=== PATIENT | female | born 1995 | race Caucasian/White ===

== ENCOUNTER 2018-06-02 14:35 | Emergency (ER) | payer SELFPAY | END 2018-06-02 18:36 | disposition left against medical advice (07) | LOC: FTE 14:35 | DX: Z53.21 Procedure and treatment not carried out due to patient leaving prior to being seen by health care provider (principal) ==

== ENCOUNTER 2018-06-03 09:17 | Outpatient (CLI) | payer SELFPAY ==
[2018-06-03 10:09] LABS: ADD MAN DIFF? NO
[2018-06-03 10:10] LABS: WHITE BLOOD COUNT 6.1 10^3/ul (4.8-10.8)
[2018-06-03 10:10] LABS: BASOPHILS % 0.2 % (0.0-2.0); EOSINOPHILS # 0.1 10^3/ul (0.0-0.5); HEMATOCRIT 29.8 % (37.0-47.0); HEMOGLOBIN 9.7 g/dl (12.0-16.0); LYMPHOCYTES # 1.3 10^3/ul (0.8-2.9); LYMPHOCYTES % 21.7 % (15.0-51.0); MEAN CORPUSCULAR HEMOGLOBIN 28.4 pg (29.0-33.0); MEAN CORPUSCULAR HGB CONC 32.6 g/dl (32.0-37.0); MEAN CORPUSCULAR VOLUME 87.4 fl (82.0-101.0); MEAN PLATELET VOLUME 9.7 fl (7.4-10.4); MONOCYTE # 0.5 10^3/ul (0.3-0.9); MONOCYTES % 7.8 % (0.0-11.0); NEUTROPHIL # 4.3 10^3/ul (1.6-7.5); NEUTROPHILS % 69.1 % (39.0-77.0); PLATELET COUNT 226 10^3/UL (140-415); RED BLOOD COUNT 3.41 10^6/ul (4.20-5.40); RED CELL DISTRIBUTION WIDTH 12.7 % (11.5-14.5)
[2018-06-03 10:16] LABS: ADD UMIC YES; UR ASCORBIC ACID NEGATIVE (NEGATIVE); UR BACTERIA FEW /HPF (NONE SEEN); UR BILIRUBIN (Dip) NEGATIVE (NEGATIVE); UR BLOOD (Dip) 1+ mg/dL (NEGATIVE); UR BUDDING YEAST MODERATE /HPF (NONE SEEN); UR CLARITY TURBID (CLEAR); UR COLOR AMBER (YELLOW); UR GLUCOSE (Dip) NEGATIVE (NEGATIVE); UR KETONES (Dip) NEGATIVE (NEGATIVE); UR LEUKOCYTE ESTERASE (Dip) 3+ Leu/ul (NEGATIVE); UR MUCUS FEW /HPF (NONE SEEN); UR NITRITE (Dip) NEGATIVE (NEGATIVE); UR NONSQUAMOUS EPITHELIAL CELL 5 /HPF (NONE SEEN); UR RBC 139 /HPF (0-5); UR SPECIFIC GRAVITY (Dip) 1.014 (1.003-1.030); UR SQUAMOUS EPITHELIAL CELL MANY /HPF (FEW); UR TOTAL PROTEIN (Dip) 1+ mg/dl (NEGATIVE); UR UROBILINOGEN (Dip) NEGATIVE (NEGATIVE); UR WBC > 182 /HPF (0-5)
== END 2018-06-03 11:50 | disposition home or self-care (01) ==
LOC: OBT 09:17 → L-D 09:17 → OBT 11:50
DX: O23.43 Unspecified infection of urinary tract in pregnancy, third trimester (principal); O99.283 Endocrine, nutritional and metabolic diseases complicating pregnancy, third trimester; E03.9 Hypothyroidism, unspecified; Z3A.30 30 weeks gestation of pregnancy
CPT/HCPCS: 76817; 76818; 81001; 85025; 87086

== ENCOUNTER 2018-07-30 21:22 | Inpatient (IN) | payer MEDICAID ==
[2018-07-30] MEDS ORDERED: LACTATED RINGER'S 1,000 ML IV (21:37)
[2018-07-30] MEDS ORDERED: OXYTOCIN 30 UNITS/LR 500 ML IV (22:00)
[2018-07-30] MEDS ORDERED: BUTORPHANOL 2 MG INJ IV (22:00)
[2018-07-30] MEDS ORDERED: METHYLERGONOVINE 0.2 MG INJ IM (22:00)
[2018-07-30] MEDS ORDERED: LIDOCAINE 1% (MPF) 30 ML INJ INJ (22:00)
[2018-07-30] MEDS ORDERED: IBUPROFEN 600 MG TAB PO (22:00)
[2018-07-30 22:14] LABS: ADD MAN DIFF? NO
[2018-07-30 22:15] LABS: WHITE BLOOD COUNT 7.8 10^3/ul (4.8-10.8)
[2018-07-30 22:15] LABS: BASOPHILS % 0.3 % (0.0-2.0); EOSINOPHILS # 0.1 10^3/ul (0.0-0.5); HEMATOCRIT 30.8 % (37.0-47.0); HEMOGLOBIN 9.4 g/dl (12.0-16.0); LYMPHOCYTES # 1.8 10^3/ul (0.8-2.9); LYMPHOCYTES % 23.4 % (15.0-51.0); MEAN CORPUSCULAR HGB CONC 30.5 g/dl (32.0-37.0); MEAN CORPUSCULAR VOLUME 78.8 fl (82.0-101.0); MEAN PLATELET VOLUME 10.5 fl (7.4-10.4); MONOCYTE # 0.7 10^3/ul (0.3-0.9); NEUTROPHIL # 5.1 10^3/ul (1.6-7.5); NEUTROPHILS % 66.2 % (39.0-77.0); NUCLEATED RED BLOOD CELLS% 0.4 /100WBC (0.0-0.0); PLATELET COUNT 248 10^3/UL (140-415); RED BLOOD COUNT 3.91 10^6/ul (4.20-5.40); RED CELL DISTRIBUTION WIDTH 15.8 % (11.5-14.5)
[2018-07-30 22:20] LABS: ADD UMIC YES; UR ASCORBIC ACID NEGATIVE (NEGATIVE); UR BILIRUBIN (Dip) NEGATIVE (NEGATIVE); UR BLOOD (Dip) NEGATIVE (NEGATIVE); UR CLARITY SLIGHTLY CLOUDY (CLEAR); UR COLOR YELLOW (YELLOW); UR GLUCOSE (Dip) NEGATIVE (NEGATIVE); UR KETONES (Dip) NEGATIVE (NEGATIVE); UR LEUKOCYTE ESTERASE (Dip) 2+ Leu/ul (NEGATIVE); UR NITRITE (Dip) NEGATIVE (NEGATIVE); UR RBC 2 /HPF (0-5); UR SQUAMOUS EPITHELIAL CELL FEW /HPF (FEW); UR TOTAL PROTEIN (Dip) NEGATIVE (NEGATIVE); UR UROBILINOGEN (Dip) NEGATIVE (NEGATIVE); UR WBC 10 /HPF (0-5)
[2018-07-30 22:33] LABS: ALANINE AMINOTRANSFERASE 11 IU/L (13-69); ALBUMIN 3.4 g/dl (3.3-4.9); ALBUMIN/GLOBULIN RATIO 1.13; ALKALINE PHOSPHATASE 209 IU/L (42-121); ANION GAP 11 (5-13); ASPARTATE AMINO TRANSFERASE 15 IU/L (15-46); BILIRUBIN,INDIRECT 0.3 mg/dl (0-1.1); BILIRUBIN,TOTAL 0.3 mg/dl (0.2-1.3); BLOOD UREA NITROGEN 10 mg/dl (7-20); CARBON DIOXIDE 19 mmol/L (21-31); CHLORIDE 108 mmol/L (97-110); CREATININE 0.44 mg/dl (0.44-1.00); Estimated GFR > 60 mL/min (>60); GLUCOSE 96 mg/dl (70-220); SODIUM 138 mmol/L (135-144); TOTAL PROTEIN 6.4 g/dl (6.1-8.1)
[2018-07-30 22:36] LABS: INR 0.92; PARTIAL THROMBOPLASTIN TIME 24.3 Sec (23.0-35.0); PROTIME 12.5 Sec (11.9-14.9)
[2018-07-30 23:04] LABS: HEPATITIS B SURFACE ANTIGEN NEGATIVE (NEGATIVE)
[2018-07-30 23:13] LABS: HIV 1&2 ANTIBODY NEGATIVE (NEGATIVE)
[2018-07-30] MEDS: LACTATED RINGER'S 1,000 ML IV (23:21)
[2018-07-30] MEDS ORDERED: FENTAnyl 2MCG/ML-ROPIV 0.2% 100 ML BAG EPI (23:30)
[2018-07-30] MEDS ORDERED: HYDROmorphONE 0.5 MG/0.5 ML SYG IV ×2 (23:30)
[2018-07-30] MEDS ORDERED: ZOLPIDEM 5 MG TAB PO (23:30)
[2018-07-30] MEDS ORDERED: ONDANSETRON 4 MG INJ IV (23:30)
[2018-07-30] MEDS ORDERED: NALOXONE (0.4 MG/ML) INJ IV (23:30)
[2018-07-30] MEDS ORDERED: KETOROLAC 30 MG INJ IV (23:30)
[2018-07-30] MEDS ORDERED: DIPHENHYDRAMINE 50 MG INJ IV (23:30)
[2018-07-31] MEDS: AMPICILLIN 2 GM/NS (PMX) 100 ML IV (00:24)
[2018-07-31] MEDS: AMPICILLIN 1 GM/NS (PMX) 50 ML IV ×2 (02:09→06:00)
[2018-07-31] MEDS: LACTATED RINGER'S 1,000 ML IV ×2 (05:37→07:15)
[2018-07-31] MEDS: OXYTOCIN 30 UNITS/LR 500 ML IV ×3 (06:05→13:12)
[2018-07-31] MEDS: MISOPROSTOL 200 MCG TAB PR (06:16)
[2018-07-31] MEDS: CARBOPROST 250 MCG INJ IM (06:42)
[2018-07-31] MEDS ORDERED: CARBOPROST 250 MCG INJ IM (07:00)
[2018-07-31] MEDS ORDERED: ACETAMINOPHEN 325 MG TAB PO (07:00)
[2018-07-31] MEDS ORDERED: LANOLIN HPA 1 PKT TOP (07:00)
[2018-07-31] MEDS ORDERED: MISOPROSTOL 200 MCG TAB PR (07:00)
[2018-07-31] MEDS ORDERED: NACL 0.9% 3 ML SYG IV (07:00)
[2018-07-31] MEDS ORDERED: OXYTOCIN 30 UNITS/LR 500 ML IV (07:00)
[2018-07-31] MEDS ORDERED: ZOLPIDEM 5 MG TAB PO (07:00)
[2018-07-31] MEDS ORDERED: DIPHENHYDRAMINE 25 MG CAP PO (07:00)
[2018-07-31] MEDS: ONDANSETRON 4 MG INJ IV (07:10)
[2018-07-31 07:30] LABS: ADD MAN DIFF? NO
[2018-07-31] MEDS: DIPHENOXYLATE/ATROPINE TAB PO (07:30)
[2018-07-31 07:35] LABS: BASOPHILS % 0.2 % (0.0-2.0); EOSINOPHILS % 0.2 % (0.0-7.0); HEMATOCRIT 29.3 % (37.0-47.0); HEMOGLOBIN 8.9 g/dl (12.0-16.0); LYMPHOCYTES # 1.8 10^3/ul (0.8-2.9); LYMPHOCYTES % 11.4 % (15.0-51.0); MEAN CORPUSCULAR HEMOGLOBIN 24.1 pg (29.0-33.0); MEAN CORPUSCULAR HGB CONC 30.4 g/dl (32.0-37.0); MEAN CORPUSCULAR VOLUME 79.4 fl (82.0-101.0); MEAN PLATELET VOLUME 10.6 fl (7.4-10.4); MONOCYTES % 6.4 % (0.0-11.0); NEUTROPHIL # 12.5 10^3/ul (1.6-7.5); NEUTROPHILS % 81.3 % (39.0-77.0); PLATELET COUNT 230 10^3/UL (140-415); RED BLOOD COUNT 3.69 10^6/ul (4.20-5.40); RED CELL DISTRIBUTION WIDTH 15.7 % (11.5-14.5)
[2018-07-31 07:35] LABS: WHITE BLOOD COUNT 15.4 10^3/ul (4.8-10.8)
[2018-07-31] MEDS: LEVOTHYROXINE 75 MCG TAB PO (07:42)
[2018-07-31] MEDS: IBUPROFEN 600 MG TAB PO ×4 (07:47→23:10)
[2018-07-31] MEDS: CEFAZOLIN 2 GM/50 ML (PMX) 50 ML IVPB ×3 (07:49→21:10)
[2018-07-31] MEDS: HYDROCODONE/APAP (5/325) TAB PO (08:47)
[2018-07-31] MEDS: SENNA/DOCUSATE NA (8.6MG/50MG) TAB PO ×2 (09:00→21:00)
[2018-07-31 09:47] LABS: AMPHETAMINE/METHAMPHETAMINE Negative (NEGATIVE); BARBITURATES Negative (NEGATIVE); BENZODIAZEPINES Negative (NEGATIVE); CANNABINOIDS Negative (NEGATIVE); COCAINE Negative (NEGATIVE); OPIATES Negative (NEGATIVE)
[2018-07-31] MEDS: WITCH HAZEL/GLYCERIN PAD PR (13:10)
[2018-07-31 15:24] LABS: ADD MAN DIFF? NO
[2018-07-31 15:26] LABS: BASOPHILS % 0.1 % (0.0-2.0); EOSINOPHILS % 0.1 % (0.0-7.0); HEMATOCRIT 25.8 % (37.0-47.0); LYMPHOCYTES # 1.9 10^3/ul (0.8-2.9); LYMPHOCYTES % 12.5 % (15.0-51.0); MEAN CORPUSCULAR HEMOGLOBIN 24.2 pg (29.0-33.0); MEAN CORPUSCULAR VOLUME 78.2 fl (82.0-101.0); MEAN PLATELET VOLUME 10.1 fl (7.4-10.4); MONOCYTES % 6.3 % (0.0-11.0); NEUTROPHIL # 12.1 10^3/ul (1.6-7.5); NEUTROPHILS % 80.5 % (39.0-77.0); PLATELET COUNT 194 10^3/UL (140-415); RED CELL DISTRIBUTION WIDTH 15.7 % (11.5-14.5)
[2018-07-31 18:42] LABS: HEMATOCRIT 24.2 % (37.0-47.0)
[2018-07-31 18:42] LABS: RAPID PLASMA REAGIN NONREACTIVE (NR)
[2018-07-31] MEDS: FERROUS SULFATE (EC) 325 MG TAB PO (21:10)
[2018-08-01] MEDS: IBUPROFEN 600 MG TAB PO ×3 (05:18→17:24)
[2018-08-01] MEDS: CEFAZOLIN 2 GM/50 ML (PMX) 50 ML IVPB (05:18)
[2018-08-01] MEDS ORDERED: LEVOTHYROXINE 75 MCG TAB PO (06:00)
[2018-08-01] MEDS: LEVOTHYROXINE 75 MCG TAB PO (06:10)
[2018-08-01 07:49] LABS: ADD MAN DIFF? NO
[2018-08-01 07:51] LABS: BASOPHILS % 0.3 % (0.0-2.0); EOSINOPHILS # 0.1 10^3/ul (0.0-0.5); EOSINOPHILS % 1.2 % (0.0-7.0); HEMATOCRIT 23.8 % (37.0-47.0); HEMOGLOBIN 7.1 g/dl (12.0-16.0); LYMPHOCYTES # 2.6 10^3/ul (0.8-2.9); LYMPHOCYTES % 26.8 % (15.0-51.0); MEAN CORPUSCULAR HEMOGLOBIN 23.6 pg (29.0-33.0); MEAN CORPUSCULAR HGB CONC 29.8 g/dl (32.0-37.0); MEAN CORPUSCULAR VOLUME 79.1 fl (82.0-101.0); MEAN PLATELET VOLUME 10.4 fl (7.4-10.4); MONOCYTE # 0.7 10^3/ul (0.3-0.9); MONOCYTES % 7.5 % (0.0-11.0); NEUTROPHIL # 6.3 10^3/ul (1.6-7.5); NEUTROPHILS % 63.8 % (39.0-77.0); NUCLEATED RED BLOOD CELLS% 0.2 /100WBC (0.0-0.0); PLATELET COUNT 211 10^3/UL (140-415); RED BLOOD COUNT 3.01 10^6/ul (4.20-5.40)
[2018-08-01 07:51] LABS: WHITE BLOOD COUNT 9.8 10^3/ul (4.8-10.8)
[2018-08-01] MEDS: FERROUS SULFATE (EC) 325 MG TAB PO ×3 (09:11→22:25)
[2018-08-01] MEDS: SENNA/DOCUSATE NA (8.6MG/50MG) TAB PO ×2 (09:11→22:25)
[2018-08-02] MEDS: IBUPROFEN 600 MG TAB PO ×3 (00:22→12:38)
[2018-08-02] MEDS: LEVOTHYROXINE 75 MCG TAB PO (06:28)
[2018-08-02] MEDS: SENNA/DOCUSATE NA (8.6MG/50MG) TAB PO (09:57)
[2018-08-02] MEDS: FERROUS SULFATE (EC) 325 MG TAB PO ×2 (09:57→12:38)
[2018-08-02 10:51] LABS: ADD MAN DIFF? NO
[2018-08-02 10:53] LABS: WHITE BLOOD COUNT 8.1 10^3/ul (4.8-10.8)
[2018-08-02 10:53] LABS: BASOPHILS % 0.4 % (0.0-2.0); EOSINOPHILS # 0.2 10^3/ul (0.0-0.5); EOSINOPHILS % 2.8 % (0.0-7.0); HEMOGLOBIN 7.1 g/dl (12.0-16.0); LYMPHOCYTES # 2.2 10^3/ul (0.8-2.9); LYMPHOCYTES % 27.1 % (15.0-51.0); MEAN CORPUSCULAR HEMOGLOBIN 24.6 pg (29.0-33.0); MEAN CORPUSCULAR HGB CONC 30.9 g/dl (32.0-37.0); MEAN CORPUSCULAR VOLUME 79.6 fl (82.0-101.0); MEAN PLATELET VOLUME 9.9 fl (7.4-10.4); MONOCYTE # 0.7 10^3/ul (0.3-0.9); MONOCYTES % 8.1 % (0.0-11.0); NEUTROPHIL # 4.9 10^3/ul (1.6-7.5); NEUTROPHILS % 60.7 % (39.0-77.0); NUCLEATED RED BLOOD CELLS% 0.4 /100WBC (0.0-0.0); PLATELET COUNT 251 10^3/UL (140-415); RED BLOOD COUNT 2.89 10^6/ul (4.20-5.40); RED CELL DISTRIBUTION WIDTH 16.3 % (11.5-14.5)
[2018-08-02 12:02] LABS: RUBELLA ANTIBODY - IGG <0.90 index
[2018-08-02 13:37] LABS: RUBELLA ANTIBODY - IGM <20.00 AU/mL
== END 2018-08-02 14:37 | disposition home or self-care (01) | DRG 807 ==
LOC: OBT 21:22 → PP1 07-31 12:44 → L-D 21:22 → OBT 21:36 → L-D 21:36
PROVIDERS: Obstetrics & Gynecology Obstetrics
PROC: 10E0XZZ Delivery of Products of Conception, External Approach (ICD-10-PCS; principal; 2018-07-31)
PROC: 0KQM0ZZ Repair Perineum Muscle, Open Approach (ICD-10-PCS; 2018-07-31)
DX: O70.1 Second degree perineal laceration during delivery (principal); Z37.0 Single live birth; Z3A.39 39 weeks gestation of pregnancy
CPT/HCPCS: 62322; 76815; 80053; 80307; 81001; 85014; 85025; 85610; 85730; 86592; 86703; 86762; 86850; 86900; 86901; 87340; 87591

== ENCOUNTER 2018-10-21 18:20 | Emergency (ER) | payer MEDICAID ==
[2018-10-21] MEDS ORDERED: DIPHTH/TET/ACEL PERTUSS (ADULT) 0.5 ML VIAL (21:00)
[2018-10-21] MEDS: DIPHTH/TET/ACEL PERTUSS (ADULT) 0.5 ML VIAL IM* (21:01)
== END 2018-10-21 21:09 | disposition home or self-care (01) ==
LOC: FTE 18:20
DX: S01.01XA Laceration without foreign body of scalp, initial encounter (principal); W01.198A Fall on same level from slipping, tripping and stumbling with subsequent striking against other object, initial encounter; Y92.9 Unspecified place or not applicable; Z23 Encounter for immunization
CPT/HCPCS: 12002; 90471; 90715; 99283-25

== ENCOUNTER 2018-11-01 23:00 | Emergency (ER) | payer MEDICAID, OTHER | END 2018-11-02 01:11 | disposition home or self-care (01) | LOC: FTE 11-02 01:11 | DX: Z48.02 Encounter for removal of sutures (principal) | CPT/HCPCS: 99281; Z7502 ==

== ENCOUNTER 2018-11-07 10:20 | Emergency (ER) | payer MEDICAID | END 2018-11-07 11:13 | disposition home or self-care (01) | LOC: FTE 10:20 | DX: Z76.0 Encounter for issue of repeat prescription (principal) | CPT/HCPCS: 99281 ==

== ENCOUNTER 2018-11-25 11:06 | Emergency (ER) | payer MEDICAID | END 2018-11-25 12:27 | disposition home or self-care (01) | LOC: FTE 12:27 | DX: S70.262A Insect bite (nonvenomous), left hip, initial encounter (principal); W57.XXXA Bitten or stung by nonvenomous insect and other nonvenomous arthropods, initial encounter; Y92.9 Unspecified place or not applicable | CPT/HCPCS: 99282 ==